=== PATIENT | female | born 1935 | race Caucasian/White ===

== ENCOUNTER 2018-12-11 04:22 | Emergency (ER) | payer MEDICARE, OTHER ==
[2018-12-11] MEDS ORDERED: NORVASC 10MG10 MG PO (04:57)
[2018-12-11] MEDS ORDERED: ASPIRIN E.C. 8181 MG PO (04:58)
[2018-12-11] MEDS ORDERED: LIPITOR 10M10 MG/TAB PO (04:58)
[2018-12-11] MEDS ORDERED: COREG 25MG25 MG/TAB PO (04:59)
[2018-12-11] MEDS ORDERED: NOVAPLUS L80 MG/0.8 SQ (04:59)
[2018-12-11] MEDS ORDERED: COUMADIN 5MG5 MG/TAB PO (05:00)
[2018-12-11 06:12] LABS: EOS % 0.2 % (1.0-5.0); HEMOGLOBIN 11.4 g/dL (12.5-16.0); LYMPH# 1.1 (1.50-4.00); MEAN CELL VOLUME 82 fl (78-100); MEAN CORPUSCULAR HEMOGLOBIN 26 pg (27-31); MEAN CORPUSCULAR HGB CONC 32 g/dL (33-37); MONO # 0.7 (0.20-0.80); NEU # 7.3 (1.40-6.50); PLATELET COUNT 236 K/mm3 (130-400); RED BLOOD COUNT 4.41 M/mm3 (4.10-5.30); RED CELL DISTRIBUTION WIDTH 15.2 % (11.5-14.5); WHITE BLOOD COUNT 9.1 K/mm3 (4.8-10.8)
[2018-12-11 06:25] LABS: PROTHROMBIN TIME 11.2 SECONDS (9.0-12.0)
[2018-12-11 06:26] LABS: ALBUMIN 3.5 g/dL (3.5-5.0); CALCIUM 8.8 mg/dL (8.4-10.2); POTASSIUM 3.4 mmol/L (3.6-5.0); TOTAL BILIRUBIN 0.5 mg/dL (0.2-1.3); TOTAL PROTEIN 6.8 g/dL (6.3-8.2)
[2018-12-11 06:36] LABS: PARTIAL THROMBOPLASTIN TIME 25.6 SECONDS (21.0-32.0)
[2018-12-11 06:44] LABS: CKMB ISOENZYME 5.1 ng/mL (0.6-3.5); TROPONIN-I 1.59 ng/mL (0.00-0.06)
[2018-12-11 09:09] VITALS: BP 148/71
[2018-12-11 09:39] LABS: URINE APPEARANCE HAZY; URINE BILIRUBIN NEGATIVE (NEGATIVE); URINE BLOOD NEGATIVE (NEGATIVE); URINE COLOR YELLOW; URINE GLUCOSE NEGATIVE (NEGATIVE); URINE KETONE NEGATIVE (NEGATIVE); URINE LEUKOCYTE ESTERASE NEGATIVE (NEGATIVE); URINE MUCUS PRESENT (NOT PRESENT); URINE NITRATE NEGATIVE (NEGATIVE); URINE PROTEIN(semi-quant) TRACE mg/dL (NEGATIVE); URINE UROBILINOGEN NORMAL (NORMAL)
[2018-12-11] MEDS ORDERED: LISINOPRIL10 MG PO (10:44)
== END 2018-12-11 09:15 | disposition other institution (70) ==
LOC: ED 04:22
PROVIDERS: Nurse Practitioner
DX: E87.6 Hypokalemia (principal); I48.91 Unspecified atrial fibrillation; I10 Essential (primary) hypertension; R53.81 Other malaise; I63.9 Cerebral infarction, unspecified; Z79.82 Long term (current) use of aspirin; Z79.01 Long term (current) use of anticoagulants; Z87.891 Personal history of nicotine dependence
CPT/HCPCS: 15973; L0172

== ENCOUNTER 2018-12-11 09:21 | Inpatient (IN) | payer MEDICARE, OTHER ==
[~2018-12-11] VITALS: Ht 152.4 cm; Wt 57.1 kg
[~2018-12-11 09:21] MED LIST: ASPIRIN E.C. 8181 MG PO; COREG 25MG25 MG/TAB PO; COUMADIN 5MG5 MG/TAB PO; LIPITOR 10M10 MG/TAB PO; NORVASC 10MG10 MG PO; NOVAPLUS L80 MG/0.8 SQ
[2018-12-11 09:29] VITALS: BP 148/71
--- NOTE | 2018-12-11 10:41 | NUR ---
LEFT MESSAGE WITH [facility] INPATIENT SPEECH THERAPY DEPT FOR INFORMATION REGARDING PATIENT'S SWALLOW AND DIET STATUS AT TIME OF DC YESTERDAY.
[2018-12-11] MEDS ORDERED: LISINOPRIL10 MG PO (10:44)
[2018-12-11 11:08] VITALS: BP 168/78
--- NOTE | 2018-12-11 12:40 | NUR ---
DISCUSS HOME ENVIRONMENT WITH PATIENT SHE EATS LUNCH. PATIENT NOTED TO BE STRUGGLING KEEPING HER DESERT BOWL ON THE TRAY. SHE LAUGHS ABOUT THIS. WILL DISCUSS WITH THERAPY PLATE/BOWL ADAPTION TO ASSIST WITH FEEDING- PERHAPS A RAISED EDGE OR A NONSKID BOTTOM. WHEN ASKED IF SHE HAS STAIRS GOING INTO HER HOUSE PATIENT REPORTS NO. HER IS QUITE HELPFUL WITH CARES AT HOME AND USUALLY COOKS THE MEALS. SHE STATES "HE IS AN EXCELLENT COOK." THEN PATIENT STATES "HE EVEN FIXED THE STEPS." CLARIFY WITH PATIENT THAT SHE HAS STAIRS LEADING INTO THE HOUSE AND SHE STATES NO. THEN PATIENT CONTINUES TO REPORT THAT IMPROVED THE "STEPS" GOING INTO THE HOUSE. CLARIFY WITH PATIENT THAT SHE HAS STEPS TO MANIPULATE TO ENTER HER HOME AND SHE ANSWERS "YES." SHE VERBALIZES FEELING CONFIDENT IN MANAGING THESE STEPS. ASK PATIENT HOW SHE DID YESTERDAY WALKING UP STEPS WHEN SHE DISCHARGED FROM HOSPITAL. PATIENT STATES "MY SON CARRIED ME." ENCOURAGE PATIENT TO WORK WITH PT AND WORK ON MANAGING STEPS.
--- NOTE | 2018-12-11 14:54 | NUR ---
ELIZABETH MCCALL FROM [facility] RETURNS CALL. SHE REPORTS THEY DID A SWALLOW EVAL ON Nov AND APPROVED FOR PATIENT TO HAVE THIN LIQUIDS AND REGULAR TEXTURE FOODS. ELIZABETH DOES REPORT DEFICITS WITH WORD FINDIND, SHORT TERM MEMORY; ORIENTATION; 2 STEP COMMANDS, AND VERBAL SEQUENCING. THIS INFORMATION RELAYED TO GEENA GUTIERREZ.
[2018-12-11 15:00] VITALS: BP 145/75
--- NOTE | 2018-12-11 15:08 | NUR ---
AMBULATES TO BATHROOM WITH LETTER SORTING MACHINE OPERATOR X2. PATIENT FATIGUES QUICKLY WITH TASK. RETURNS TO BED TO REST.
--- NOTE | 2018-12-11 16:00 | NUR ---
PT TO EVAL PATIENT.
--- NOTE | 2018-12-11 16:33 | NUR ---
[facility] INPATIENT THERAPY CONTACTED. MESSAGE LEFT REQUESTING RECORDS FOR PATIENT.
[2018-12-11 18:51] VITALS: BP 182/77
--- NOTE | 2018-12-11 20:10 | NUR ---
REPORT RECEIVED FROM KATYA Seth RN.
--- NOTE | 2018-12-11 20:45 | NUR ---
REPORT PROVIDED TO DANNY COX.
[2018-12-11 22:48] VITALS: BP 127/63
--- NOTE | 2018-12-11 23:29 | NUR ---
REPORT GIVEN TO KANDI Keating RN.
--- NOTE | 2018-12-11 23:30 | NUR ---
Patient laying awake in bed. Drowsy. Oriented to self only. Denies pain. Half way through neuro assessment patient closes her eyes and stops participating. Repositioned patient in bed. multiple attempts to complete neuro assessment. Patient states that she is comfortable. Fall precautions in place.
[2018-12-12 03:17] VITALS: BP 157/66
[2018-12-12 05:47] LABS: CALCIUM 8.5 mg/dL (8.4-10.2); POTASSIUM 3.2 mmol/L (3.6-5.0)
[2018-12-12 05:48] LABS: PROTHROMBIN TIME 12.3 SECONDS (9.0-12.0)
[2018-12-12 06:20] VITALS: BP 148/66
[2018-12-12 18:41] VITALS: BP 144/72
--- NOTE | 2018-12-12 20:30 | NUR ---
REPORT RECEIVED FROM MORRIS Lo RN.
[2018-12-13 06:24] VITALS: BP 172/70
[2018-12-13 07:10] LABS: CALCIUM 8.7 mg/dL (8.4-10.2); POTASSIUM 3.6 mmol/L (3.6-5.0)
[2018-12-13 07:14] LABS: PROTHROMBIN TIME 14.1 SECONDS (9.0-12.0)
--- NOTE | 2018-12-13 08:05 | NUR ---
PATIENT REPORT RECEIVED; PATIENT UP IN CHAIR AND SAYS GOOD MORNING. REPORTS SHE THINKS SHE IS DOING BETTER AND READY TO GO HOME.
--- NOTE | 2018-12-13 08:12 | NUR ---
REPORT GIVEN TO CHARLES Barbosa RN.
--- NOTE | 2018-12-13 16:53 | NUR ---
Patient sat in room most of day in the quiet, denies TV, books, puzzles, etc for something to do. 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 Patient reports she feels ready to go home and wants me to go ahead and do what I need to do so she can go home. Explained to patient she is getting therapy here to increase strength to be able to go home safely and we don't want her to leave before she is ready. She said she understood but her old man needs her home. Patient verbalizes understanding for rehab that she needs to be stronger, but then states she is ready now. Patient does exhibit signs of confusion all day, intermittently.
--- NOTE | 2018-12-13 17:36 | NUR ---
assisted patient into bed from chair, transferred easily with minimal assist up out of chair and into bed. Patient was able to scoot herself, then staff boosted her up. Placed pillow under left arm and patient was able to lift own arm slightly and held for a few seconds. Improvement from earlier this day with this movement. Patient was very happy that she could do this and said, "see I told you I can go home."
[2018-12-13 18:54] VITALS: BP 144/72
[2018-12-14 06:29] VITALS: BP 145/80
--- NOTE | 2018-12-14 07:00 | NUR ---
REPORT RECEIVED FROM ALBINA COX.
--- NOTE | 2018-12-14 08:30 | NUR ---
PATIENT IN CHAIR FOR BREAKFAST. MANAGING PLATE OF FOOD AND UTENSILS BETTER THAN WHEN SHE WAS ADMITTED. SHE ONLY OFFERS ONE REQUEST- TO HAVE HER JOIN HER FOR BREAKFAST. PATIENT ADVISED THAT BREAKFAST CAN BE ORDERED FOR HIM IF HE CHOOSES TO JOIN HER SOMETIME. DENIES PAIN. ABLE TO LIFT LOWER PORTION OF LT ARM OFF CHAIR. LT HAND ETL CONSULTANT WEAKER THAN RT. PATIENT OPTIMISTIC ABOUT RETURNING HOME.
--- NOTE | 2018-12-14 09:30 | NUR ---
ARRIVES TO VISIT PATIENT.
[2018-12-14 17:39] VITALS: BP 166/69
[2018-12-15 06:18] VITALS: BP 163/78
--- NOTE | 2018-12-15 07:15 | NUR ---
PATIENT RESTING IN BED; REPORT RECEIVED FROM KENNY MONTEMAYOR. PATIENT AWAKE BUT NOT INTERACTING MUCH WITH REPORT. WILL ASSESS PATIENT AFTER SHE IS UP FOR BREAKFAST.
--- NOTE | 2018-12-15 08:12 | NUR ---
PATIENT IS ANSWERING QUESTIONS APPROPRIATELY AND SMILING AND JOKING THIS MORNING. AMBULATING WELL WITH QUAD CANE AND ASKS FOR MINIMAL ASSIST WITH GETTING UP TO SITTING POSITION AND ASKS FOR HELP WITH CUTTING FOOD AND TAKING OFF PLASTIC FILM. NO CONCERNS OR NEEDS AT THIS TIME.
[2018-12-15 17:53] VITALS: BP 152/72
--- NOTE | 2018-12-15 17:54 | NUR ---
PATIENT HAD AN UNEVENTFUL DAY; NO VISITORS NOTED. PATIENT SLEPT THIS AFTERNOON AND UP TO BATHROOM AND TO CHAIR WITH SOME ASSISTANCE. AMBULATED WELL WITH NURSE. PATIENT ATE VERY WELL. RESTED IN ROOM AND IN CHAIR WITHOUT ANY ENTERTAINMENT, SHE REFUSES TV, BOOKS, PUZZLES. SHE LIKES THE WINDOW BLINDS OPEN TO LOOK OUTSIDE. PATIENT DOES REPORT SHE IS READY TO GO HOME AND WISHES THAT SHE COULD. PATIENT IS COOPERATIVE AND TAKES MEDICATION EASILY WHOLE PILLS ALL TOGETHER.
[2018-12-16 06:04] VITALS: BP 153/78
[2018-12-16 10:35] LABS: PROTHROMBIN TIME 36.1 SECONDS (9.0-12.0)
--- NOTE | 2018-12-16 10:45 | NUR ---
Tayolr Brooks APRN notified of PT/INR results.
[2018-12-16 18:50] VITALS: BP 151/58
--- NOTE | 2018-12-16 20:00 | NUR ---
PT ASLEEP IN BED AT THIS TIME, WOKE UP IN ORDER TO TAKE HS MEDS, PT WAKES UP SLOWLY AND IS MINIMALLY DISORIENTED BUT ABLE TO CARRY AN APPROPRIATE CONVERSATION AND TELL ME WHERE SHE IS, PT DENIES PAIN, DENIES NEEDS, STABLE CONDITION, COMPLEX ASSESSMENT COMPLETED AND CHARTED
[2018-12-17 06:17] VITALS: BP 132/69
[2018-12-17 13:35] LABS: PROTHROMBIN TIME 30.3 SECONDS (9.0-12.0)
[2018-12-17 18:39] VITALS: BP 145/69
--- NOTE | 2018-12-17 19:40 | NUR ---
Report received from Julianne COX. Patient resting in bed on R side with bed alarm on. Call light in reach. A/O to self, did not know , States current month as "december". Did not know town, knew she was in the hospital and states "I don't know for current year". Denies pain. Assessment completed. Denies current wants needs or questions.
[2018-12-18 06:19] VITALS: BP 165/79
--- NOTE | 2018-12-18 06:38 | NUR ---
Rested well all shift. Takes AM medication without difficulty. Denies pain or needs. Bed alarm on. Call light in reach.
[2018-12-18 18:13] VITALS: BP 133/73
--- NOTE | 2018-12-18 19:23 | NUR ---
REPORT RECEIVED FROM CHARLES Barbosa RN.
[2018-12-19 06:26] VITALS: BP 165/73
[2018-12-19 07:17] LABS: PROTHROMBIN TIME 27.8 SECONDS (9.0-12.0)
--- NOTE | 2018-12-19 07:33 | NUR ---
REPORT GIVEN TO ALEKSANDR Lo RN.
--- NOTE | 2018-12-19 15:28 | NUR ---
pt sitting in chair next to bed looking out window. I offered pt TV, magazines or puzzle, she states "no thank you" I enjoy being in the quiet. Chair alarm is production clerks supervisor light within reach, and water is on bedside table within reach.
[2018-12-19 18:06] VITALS: BP 146/57
--- NOTE | 2018-12-19 18:56 | NUR ---
GAVE CHANGE OF SHIFT REPORT TO Maribel
--- NOTE | 2018-12-20 01:21 | NUR ---
PATIENT CONTINUES TO REST QUIETLY IN BED. SHE DOES NOT APPEAR TO BE IN ANY OBVIOUS DISTRESS. PATIENT CHANGES HER POSITION IN BED INDEPENDENTLY THROUGHOUT THE NIGHT. PATIENT DENIES ANY PAIN. BED RAILS UP X2. BED ALARM ARMED AT ALL TIMES. CALL LIGHT WITHIN REACH. CLOSE MONITORING AND HOURLY ROUNDING CONTINUE.
[2018-12-20 06:13] VITALS: BP 149/66
[2018-12-20 18:23] VITALS: BP 125/67
--- NOTE | 2018-12-20 19:26 | NUR ---
gave report to night nurse ana
[2018-12-21 06:32] VITALS: BP 135/69
--- NOTE | 2018-12-21 09:15 | NUR ---
Pt alert to self and place and reoriented to time/date at this time. Resp unlabored. Pt states "I'm ready to go home." Pt has weakness in strength of left commission sales associate and leg strength but has shown improvement since stay. PERRL. Denies any pain at this time. Up in recliner at bedside w/ chair alarm on and call light in reach.
[2018-12-21 18:26] VITALS: BP 132/60
[2018-12-22 06:24] VITALS: BP 140/58; BP 1400/58
[2018-12-22 17:50] VITALS: BP 160/71
[2018-12-23 06:22] VITALS: BP 167/74
--- NOTE | 2018-12-23 09:39 | NUR ---
Patient pleasant and alert, sitting in recliner. Reoriented to day. Denies pain, no signs of distress. States that she is ready to go home.
[2018-12-23 18:31] VITALS: BP 143/60
--- NOTE | 2018-12-23 19:41 | NUR ---
Report given to KENNY Redmond.
[2018-12-24 06:01] LABS: EOS % 0.5 % (1.0-5.0); HEMOGLOBIN 10.9 g/dL (12.5-16.0); LYMPH# 1.2 (1.50-4.00); MEAN CELL VOLUME 81 fl (78-100); MEAN CORPUSCULAR HEMOGLOBIN 25 pg (27-31); MEAN CORPUSCULAR HGB CONC 31 g/dL (33-37); MEAN PLATELET VOLUME 9.5 fl (7.4-10.4); MONO # 0.5 (0.20-0.80); NEU # 5.8 (1.40-6.50); PLATELET COUNT 418 K/mm3 (130-400); RED BLOOD COUNT 4.33 M/mm3 (4.10-5.30); RED CELL DISTRIBUTION WIDTH 14.8 % (11.5-14.5); WHITE BLOOD COUNT 7.7 K/mm3 (4.8-10.8)
[2018-12-24 06:17] LABS: ALBUMIN 3.6 g/dL (3.5-5.0); TOTAL BILIRUBIN 0.3 mg/dL (0.2-1.3)
[2018-12-24 06:21] VITALS: BP 142/73
[2018-12-24 06:49] LABS: PROTHROMBIN TIME 37.5 SECONDS (9.0-12.0)
--- NOTE | 2018-12-24 07:00 | NUR ---
REPORT RECEIVED FROM ALBINA COX.
--- NOTE | 2018-12-24 08:00 | NUR ---
SITTING IN CHAIR WAITING FOR BREAKFAST. COFFEE DELIVERED TO PATIENT. SHE REPORTS WANTING TO GO HOME. INCREASED MOVEMENT TO LT ARM- SHE IS ABLE TO LIFT ARM INTO AIR. LT FAMILY READINESS SUPPORT ASSISTANT STILL WEAKER THAN RT. LLE WEAKNESS REMAINS. ORIENTED X4, BUT DOES STRUGGLE WITH PROPER WORD USE DURING CONVERSATION. PLEASANT MOOD THIS AM.
[2018-12-24 18:54] VITALS: BP 136/72
--- NOTE | 2018-12-24 19:00 | NUR ---
REPORT RECEIVED FROM KANDI Keating RN.
--- NOTE | 2018-12-24 21:34 | NUR ---
PATIENT RESTING QUIETLY IN BED. PATIENT REPORTS THAT SHE IS NOT SURE IF SHE WILL GO TO BED QUITE YET BUT SHE IS NOT WATCHING TV OR READING OR REALLY INTERACTING WITH ANYBODY. PATIENT DOES NOT APPEAR TO BE IN ANY OBVIOUS DISTRESS AT THIS TIME. PATIENT IS ALERT AND ORIENTED AND SASSY IN HER INTERACTIONS WITH STAFF. PATIENT DENIES ANY PAIN. DAY STAFF REPORT PATIENT WAS MORE IMPULSIVE THAN USUAL TODAY AND SO CONSTRUCTION SUPERINTENDENT POSTED DOWN THAT TOMAS FOR FASTER RESPONSE TIME. PATIENT CONTROLS BED POSITIONS INDEPENDENTLY. SHE CHANGES HER POSITION IN BED INDEPENDENTLY. BED RAILS UP X2. BED ALARM ARMED AT ALL TIMES. CALL LIGHT WITHIN REACH. CLOSE MONITORING AND HOURLY ROUNDING CONTINUE.
--- NOTE | 2018-12-25 01:35 | NUR ---
PATIENT CONTINUES TO REST QUIETLY IN BED. PATIENT CHANGES HER POSITION IN BED INDEPENDENTLY THROUGHOUT THE NIGHT. PATIENT DENIES ANY PAIN. PATIENT HAS HAD NO REQUESTS OR NEEDS. PATIENT HAS AMBULATES TO THE BATHROOM ONCE THROUGHOUT THE NIGHT. PATIENT DOES NOT APPEAR TO BE IN ANY OBVIOUS DISTRESS. BED ALARM ARMED AT ALL TIMES. BED RAILS UP X2. CALL LIGHT WITHIN REACH. CLOSE MONITORING AND HOURLY ROUNDING CONTINUE.
[2018-12-25 06:36] VITALS: BP 137/65
--- NOTE | 2018-12-25 07:00 | NUR ---
REPORT RECEIVED FROM DANNY COX.
--- NOTE | 2018-12-25 07:13 | NUR ---
REPORT GIVEN TO KATYA Seth RN.
--- NOTE | 2018-12-25 13:59 | NUR ---
DOWN STAIRS VIA W/C TO WORK WITH PT.
[2018-12-25 18:42] VITALS: BP 113/55
[2018-12-27 11:27] LABS: PROTHROMBIN TIME 34.1 SECONDS (9.0-12.0)
[2018-12-27 12:36] LABS: PROTHROMBIN TIME 28.9 SECONDS (9.0-12.0)
--- NOTE | 2018-12-27 12:50 | NUR ---
patient sitting in chair at bedside, no complaints of pain, states she rested well lastnight and is still ready to go home. I explained discharge plan of family education before she is discharged. chair alarm on, call light within reach.
--- NOTE | 2018-12-27 14:00 | NUR ---
[facility] D[facility]NT[facility] 12/26/18 0400 - 12/27/18 1400. PLEASE REFER TO SCANNED DOCUMENTS DURING THIS TIMEFRAME.
[2018-12-27 18:26] VITALS: BP 161/73
[2018-12-28 06:41] VITALS: BP 166/77
--- NOTE | 2018-12-28 15:35 | NUR ---
Pt spent some of the day so far in her wheel chair chatting with staff. Denies any pain, still asking when she can go home. I explained that the plan state in one to two weeks, and after family has received care education. will contine to monitor.
[2018-12-28 18:22] VITALS: BP 140/63
--- NOTE | 2018-12-28 19:20 | NUR ---
gave report to Monik night custodian nurse
[2018-12-29 06:27] VITALS: BP 155/75
--- NOTE | 2018-12-29 12:50 | NUR ---
PATIENT REPORT RECEIVED BY KENNY LOFTON THIS MORNING AT SHIFT CHANGE. PATIENT WAS IN BED BUT READY TO GET UP TO CHAIR DURING REPORT. PATIENT DENIES ANY CONCERNS; STATES "IM READY TO GO HOME". PATIENT ATE BREAKFAST AND ENJOYED HER COFFEE THIS MORNING. I ASKED PATIENT IF SHE LIKED COUNTRY MUSIC AND SHE SAID YES. EDELMIRA DAVIDSON FOUND THE STATION ON TV THAT PLAYED MUSIC AND SHE IS ENJOYING LISTENING TO IT. SHE ATE LUNCH AND AGAIN ASKED FOR COFFEE. PATIENT SIPPING ON HER COFFEE WITH THE MUSIC STILL ON AND SMILE ON HER FACE. I TEASED PATIENT WE COULD DANCE FOR THERAPY INSTEAD OF WALK AND SHE SAID THAT SHE USED TO SQUARE DANCE BUT CAN'T DO THAT ANYMORE. PATIENT IS ALERT, TALKATIVE AND APPEARS TO BE IN A GREAT MOOD. PATIENT HAS BLINDS OPEN AND LOOKS OUTSIDE ENJOYING THE SCENERY. SHE WISHED THE BIRDS WERE OUT; SHE REPORTS SHE LIKES TO WATCH THEM AND THE SQUIRRELS PLAY. SHE REPORTS THEY HAVE A LOT OF SQUIRRELS AT HOME AND THEY ARE FUN TO WATCH.
[2018-12-29 18:23] VITALS: BP 169/74
[2018-12-30 06:05] VITALS: BP 164/72
[2018-12-30 07:01] LABS: PROTHROMBIN TIME 22.9 SECONDS (9.0-12.0)
--- NOTE | 2018-12-30 09:00 | NUR ---
REPORT RECEIVED FROM JIMENA Vazquez RN.
--- NOTE | 2018-12-30 15:04 | NUR ---
REPORT GIVEN TO CHRISTIAN Seth RN.
[2018-12-30 18:51] VITALS: BP 152/78
[2018-12-31 06:21] VITALS: BP 157/70
--- NOTE | 2018-12-31 07:00 | NUR ---
REPORT RECEIVED FROM ALBINA COX.
--- NOTE | 2018-12-31 08:15 | NUR ---
PATIENT SITTING IN CHAIR. TALKATIVE. VERBALIZES THAT SHE WANTS TO GO HOME. PATIENT REPORTS THAT HER FAMILY HAS NOT BEEN IN TO WORK WITH THERAPY. NONPRODUCTIVE COUGH NOTED. LUNG SOUNDS CTA BILAT. REPORTS DISCOMFORT TO LT THUMB AND JUMPS WHEN JOINT TOUCHED. PAIN PRESENT WITH MOVEMENT. SPEECH CLEAR. SHE IS NOT ORIENTED TO TIME. NOTE PATIENT TO ANSWER QUESTIONS WITH SARCASTIC COMMENT OR STATEMENT THAT DOES NOT APPLY TO QUESTION WHEN SHE DOES NOT KNOW HOW TO ANSWER.
--- NOTE | 2018-12-31 16:19 | NUR ---
INCONTINENT STOOL X2 TODAY. PER [place]OR [place], PATIENT DID NOT INFORM STAFF SHE NEEDED TO USE THE BATHROOM. RATHER, PATIENT STATES "I NEED TO GO TO THE BATHROOM. I ALREADY WENT IN MY PANTS."
[2018-12-31 19:00] VITALS: BP 120/51
[2019-01-01 06:18] VITALS: BP 114/59
[2019-01-01 18:00] VITALS: BP 118/48
--- NOTE | 2019-01-01 19:13 | NUR ---
REPORT PROVIDED TO ALBINA COX.
[2019-01-02 06:25] VITALS: BP 121/63
--- NOTE | 2019-01-02 11:36 | NUR ---
Pt has been sitting up in chair in room. Alert and oriented to self and aware she is in hospital, but disoriented to city/town and to time. Reoriented. She is pleasant and cooperative. She understands use of call light. Speech clear and she can voice needs. Using incont. pull-up brief for occasional incont. episodes. Skin intact to arms, buttocks, legs, and feet. Assisted to toilet to assess gait with SBA x1; has dawna-walker, but declined using this. Has some R hemiparesis with drifts to R arm and R leg; R hand jackscrew man sl. weaker than L. Cont. to monitor on regular rounds.
[2019-01-02 16:30] VITALS: BP 147/79
--- NOTE | 2019-01-02 19:11 | NUR ---
REPORT GIVEN TO RETA
--- NOTE | 2019-01-02 19:15 | NUR ---
Resting in bed awake and a/o x 3. Denies having any pain or needs. Call light with in reach and bed alarm set.
--- NOTE | 2019-01-02 19:30 | NUR ---
Resting in bed with head of bed elevated. Awake and a/o x 3. Female family member at bedside. Denies having any generalized pain or left hand pain. Bed alarm set and call light with in reach of pt.
[2019-01-03 06:14] VITALS: BP 123/73
--- NOTE | 2019-01-03 07:00 | NUR ---
Bedside report given to Nyla Daniel RN
--- NOTE | 2019-01-03 08:00 | NUR ---
Pt sitting on recliner next to bed listening to her music. She is smiling and states "When is breakfast." Denies any pain, bedside table next to her with call light and water in easy reach. I offered to bring her magazines or reading material, she refuses, and states she enjoy looking out the window and listening to her music. Chair alarm is on. Will continue to monitor.
[2019-01-03 17:18] VITALS: BP 126/67
--- NOTE | 2019-01-03 19:05 | NUR ---
REPORT RECEIVED FROM ALEKSANDR COX.
--- NOTE | 2019-01-03 20:30 | NUR ---
THIS RN IN WITH PATIENT TO ADMINISTER HS MEDS AND PERFORM SHIFT ASSESSMENT. PATIENT DOES NOT APPEAR TO BE IN ANY OBVIOUS DISTRESS. PATIENT IS ALERT AND ORIENTED, PLEASANT AND COOPERATIVE. SHE INTERACTS APPROPRIATELY WITH THIS NURSE AND JOKES AROUND. PATIENT CONSUMES HER MEDICATION WITH NO DIFFICULTY. SHE DENIES ANY PAIN. SHE AMBULATES TO THE BATHROOM WITH STANDBY ASSIST AT THIS TIME AND VOIDS AN UNMEASURED VOID. HER BRIEFS ARE MILDLY SOILED WITH URINE AND SO THEY ARE CHANGED AND INCONTINENT CARE IS PROVIDED. PATIENT HAS NO COMPLAINTS OR REQUESTS AT THIS TIME. PATIENT STATES SHE IS VERY SLEEPY AND CANNOT WAIT TO GO BACK TO BED. BED RAILS UP X2. BED ALARM ARMED AT ALL TIMES. CALL LIGHT WITHIN REACH. CLOSE MONITORING AND HOURLY ROUNDING CONTINUE.
--- NOTE | 2019-01-04 01:20 | NUR ---
PATIENT CONTINUES TO REST QUIETLY IN BED. PATIENT DOES NOT APPEAR TO BE IN ANY OBVIOUS DISTRESS AT THIS TIME. PATIENT CHANGES HER POSITION IN BED INDEPENDENTLY THROUGHOUT THE NIGHT. PATIENT DENIES ANY PAIN. BED RAILS UP X2. BED ALARM ARMED AT ALL TIMES. CALL LIGHT WITHIN REACH. CLOSE MONITORING AND HOURLY ROUNDING CONTINUE.
[2019-01-04 06:20] VITALS: BP 134/63
--- NOTE | 2019-01-04 07:11 | NUR ---
REPORT GIVEN TO ALEKSANDR COX.
--- NOTE | 2019-01-04 07:39 | NUR ---
pt is sitting in recliner next to bed, head to toe assessment performed. Pt looks comfortable and relaxed, she denies pain. She states that she is ready to go home, I explained that her discharge is still being planned, but we are working on tbe details, she has no further questions regarding this. Her radio is next to her along with magazines, puzzle, water and call light. Her chair alarm is on.
[2019-01-04 17:20] VITALS: BP 128/74
--- NOTE | 2019-01-05 05:50 | NUR ---
Pt rest in bed through out the shift. Pt has a noticable weakness in left arm. Pt offers no complaints of pain or discomfort. Pt is able to let staff of any needs.
[2019-01-05 06:28] VITALS: BP 143/78
--- NOTE | 2019-01-05 09:24 | NUR ---
PT UP IN CHAIR STARING OUT WINDOW WHEN THIS NURSE WALKED IN, PT REFUSING MIRALAX AND STATING SHE HAS BEEN HAVING A "LOT OF STOOLS", PT ALSO MENTIONS MULTIPLE TIMES, "CAN YOU PLEASE GET ME OUT OF HERE, I NEED TO GET HOME," PT EDUCATED AND REASSURED THAT WE WANT TO ENSURE A SAFE DISCHARGE FOR HER OWN SAFETY AT HOME, PT ROLLS EYES AND STATES "THE NEXT THING YOU BRING INTO THIS ROOM BETTER BE MY , NOT MEDICATIONS," THIS NURSE SAT AT PT'S BEDSIDE AND HAD A LENGTHY CONVERSATION WITH PATIENT TO TRY TO LIFT HER SPIRITS, PT SMILED AND JOKED SARCASTICALLY THROUGHOUT CONVERSATION BUT ONCE AGAIN WHEN THIS NURSE LEFT ROOM STATED, "PLEASE, HELP ME GET HOME." THIS NURSE ACKNOWLEDGED HER CONCERNS AND ENCOURAGED HER TO KEEP WORKING HARD
--- NOTE | 2019-01-05 09:52 | NUR ---
PT ASSISTED TO TAKE A SHOWER, GET A FRESH OUTFIT ON, AND IS NOW OUT WALKING IN THE HALLS WITH STAFF, SMILING AND PLEASANT MOOD, WILL ENCOURAGE PT TO STAY ACTIVE AND KEEP HER MIND BUSY TODAY IN ORDER TO HELP WITH HER FEELINGS OF "WANTING TO GET HOME"
--- NOTE | 2019-01-05 13:04 | NUR ---
PT UP IN CHAIR, ASKING MULTIPLE TIMES TO GOVERNMENT DOCUMENTS LIBRARIAN STAFF TODAY "WHEN CAN YOU GET ME HOME," PT REDIRECTED AND ENCOURAGED THROUGH HER FRUSTRATIONS, AT THIS TIME THIS NURSE ENTERED ROOM TO VISIT WITH PATIENT AND RAISE HER SPIRITS, PT SMILING, AGREEABLE TO MUSIC, LISTEN TO MUSIC TOGETHER AND TALK ABOUT HER HOMELIFE, PT SMILING AND PLEASANT UPON EXITING ROOM, LISTENING TO MUSIC IN CHAIR WITH CALL LIGHT WITHIN REACH AND CHAIR ALARM ON, DENIES FURTHER NEEDS AT THIS TIME
[2019-01-05 17:49] VITALS: BP 138/67
--- NOTE | 2019-01-06 04:35 | NUR ---
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 Pt has left upper arm weakness. PT is able to make needs known to staff. Bed alarms on for pt saftey due to the pt will not always use call light to use toilet. Pt is pleasent and coppertive with cares. Pt aske how long she will have to stay in the hospital and how long she will have to take "this medication". Explained to pt why medication is needed and what it does. Pt askes several times when she would be able to go home.
[2019-01-06 06:21] VITALS: BP 111/54
[2019-01-06 07:49] LABS: EOS # 0.1 (0.04-0.40); EOS % 0.8 % (1.0-5.0); HEMATOCRIT 35.6 % (37.0-47.0); HEMOGLOBIN 11.2 g/dL (12.5-16.0); LYMPH# 1.4 (1.50-4.00); MEAN CELL VOLUME 81 fl (78-100); MEAN CORPUSCULAR HEMOGLOBIN 25 pg (27-31); MEAN CORPUSCULAR HGB CONC 32 g/dL (33-37); MEAN PLATELET VOLUME 10.6 fl (7.4-10.4); MONO # 0.6 (0.20-0.80); PLATELET COUNT 253 K/mm3 (130-400); RED BLOOD COUNT 4.42 M/mm3 (4.10-5.30); WHITE BLOOD COUNT 6.1 K/mm3 (4.8-10.8)
[2019-01-06 07:54] LABS: PROTHROMBIN TIME 25.5 SECONDS (9.0-12.0)
[2019-01-06 08:39] LABS: ALBUMIN 3.6 g/dL (3.5-5.0); CALCIUM 9.4 mg/dL (8.4-10.2); POTASSIUM 3.7 mmol/L (3.6-5.0); TOTAL BILIRUBIN 0.3 mg/dL (0.2-1.3)
[2019-01-06 18:26] VITALS: BP 142/70
[2019-01-07 06:13] VITALS: BP 146/73
--- NOTE | 2019-01-07 17:00 | NUR ---
BIPBA form signed by pt and pt also chooses [facility] at this time for her post d/c HH needs.
[2019-01-07 19:00] VITALS: BP 162/71
[2019-01-08 06:23] VITALS: BP 124/62
--- NOTE | 2019-01-08 12:27 | NUR ---
First visit from the automobile washer steam. No needs right now.
--- NOTE | 2019-01-08 18:18 | NUR ---
REPORT RECEIVED THIS AM AND PATIENT WAS UP IN CHAIR AND DENIES ANY CONCERNS OR NEEDS. PATIENT REPORTS SHE IS GOING HOME TOMORROW AND WISHED IT WAS TODAY. PATIENT IS SMILING AND HAPPY AND DID WELL MOST OF DAY. PATIENT ATE WELL ALL MEALS AND WORKED WITH PT/OT AND AMBULATED WELL WITH STANDBY ASSIST. PATIENT WENT DOWNSTAIRS WITH PT. PATIENT CLOTHES WERE GIVEN TO LAUNDRY SO THAT SHE HAD CLEAN CLOTHES TO WEAR HOME TOMORROW. PATIENT IS CALM AND COOPERATIVE MOST OF THE DAY WITH SOME EPISODES OF CONFUSION BUT ABLE TO ORIENT EASILY.
[2019-01-08 19:10] VITALS: BP 118/54
--- NOTE | 2019-01-09 03:39 | NUR ---
REPORT RECEIVED FROM KANDI Keating RN.
[2019-01-09 06:26] VITALS: BP 134/68
--- NOTE | 2019-01-09 06:52 | NUR ---
REPORT GIVEN TO SHERLYN Matthews RN.
[2019-01-09] MEDS ORDERED: PANTOPRAZOLE SO40 MG PO (08:13)
[2019-01-09] MEDS ORDERED: COUMADIN 22.5 MG/TAB PO (08:13)
[2019-01-09] MEDS ORDERED: HYDROCHLOROTH12.5 M1 PO (08:13)
--- NOTE | 2019-01-09 08:45 | NUR ---
Pt sitting up in chair. "Just waiting on the ol man, Im ready to go home" Pt asked questions regarding discharge and follow up care and who PCP is. Pt replies "I dont know, you'll have to ask him when he gets here"
--- NOTE | 2019-01-09 10:25 | NUR ---
Follow up appointment made for pt to see Dr Campoverde 01/16/19 at 1 pm. Discharge instructions reviewed with pt and . Education stressed on importance of new prescriptions and warfarin education provided. Pt and both joke about this. Both re educated on importance and need to case picker from pharmacy. Pt assisted out in wheel chair at this time
== END 2019-01-09 10:25 | disposition home health service (06) | DRG 57 ==
LOC: MED/SURG 09:21
PROVIDERS: Internal Medicine; Nurse Practitioner Primary Care; ADMIT Physician Assistant
DX: I69.354 Hemiplegia and hemiparesis following cerebral infarction affecting left non-dominant side (principal); I48.91 Unspecified atrial fibrillation; I10 Essential (primary) hypertension; Z79.01 Long term (current) use of anticoagulants; E87.6 Hypokalemia; I05.9 Rheumatic mitral valve disease, unspecified
CPT/HCPCS: J1650; J3480